=== PATIENT | male | born 1975 | race Caucasian/White ===

== ENCOUNTER 2020-07-25 08:33 | Emergency (ER) | payer OTHER, SELFPAY ==
[2020-07-25 08:52] VITALS: BP 118/78; PULSE 104; RESP 18; TEMP 37.1; O2SAT 95; BMI 21.3
--- NOTE | 2020-07-25 08:54 | ED.FEVER ---
HPI - Fever General Chief Complaint: Fever Stated Complaint: chemo yest/fever 100 Time Seen by Provider: 07/25/20 08:51 Source: patient and family (wofe ) Mode of arrival: Ambulatory Limitations: no limitations History of Present Illness HPI Narrative: This is a 45-year-old male who comes in with complaint of fever up to 101.5 at home starting last night. Patient did take Tylenol last night and this morning about 7:00 a.m.. He felt flushed, his face was little bit red. He has had some mild nasal congestion. He has not had any cough or chest congestion. He denies any chest pain or shortness of breath. He did have quite a bit of indigestion last night and states that he had some nausea but no vomiting. He alternates between diarrhea and constipation but has not had any black or bloody stool. He has not had any rashes or skin changes elsewhere. He had a headache last night but does not describe it as severe. No neck pain. Patient had a colon resection for stage IV colon cancer in June. He states his incisions have been healing well. He has some residual pain does stretches, he typically only has pain with bowel movements. He had his 2nd dose of chemo yesterday and his symptoms started in the evening afterwards. He has not had any radiation. He did take Zofran for nausea which he had not had until the chemo. He does not have any other major medical issues. He follows with Dr. Perez for his oncology and [facility] for his primary care. Related Data Previous Rx's Medication Instructions Recorded doxycycline hyclate 100 mg PO BID #14 cap 07/25/20 Allergies Allergy/AdvReac Type Severity Reaction Status Date / Time celecoxib [From Celebrex] Allergy Verified 07/25/20 09:37 Sulfa (Sulfonamide Allergy Verified 07/25/20 09:37 Antibiotics) Review of Systems Review of Systems ROS Unobtainable: All systems reviewed & are unremarkable except as noted in HPI and below Patient History Medical History (Updated 07/25/20 @ 09:34 by Jenny Selby DO) Colon cancer (Acute) Surgical History (Updated 07/25/20 @ 09:11 by Jenny Selby DO) S/P colon resection (Acute) Social History Smoking Status: Former smoker (quit in june) Smoking Status: Former smoker (quit in june) alcohol intake frequency: holidays/special occasions only Substance Use Type: marijuana Exam Narrative Exam Narrative: GEN: well nourished, well appearing male, alert and oriented x 3, patient appears to be in mild distress. HEENT: Atraumatic, pupils are equal round reactive to light, extraocular movements are intact, nares are clear, TMs are clear with no fluid, there is no conjunctival pallor. Throat is clear without any exudates, erythema, tonsillar enlargement or uvular deviation HEART: Regular rate and rhythm without murmur, clicks, rubs. LUNGS:Lungs clear to auscultation, no wheezes, rales, crackles, chest moves symmetrically, no tachycardia, tachypnea or accessory muscle use ABD:bowel sounds normal, soft, non-tender, no guarding, rebound, rigidity, no masses noted, no hepatosplenomegaly :No CVA tenderness MSCL: Non-tender, no muscle atrophy, muscles strength 5/5 upper and lower extremities, full range of motion, normal gait NEURO:CN 2-12 intact, sensation normal SKIN: No rash, erythema or other skin change Initial Vital Signs Initial Vital Signs: Vital Signs Temperature 98.7 F 07/25/20 08:52 Pulse Rate 104 H 07/25/20 08:52 Respiratory Rate 18 07/25/20 08:52 Blood Pressure 118/78 07/25/20 08:52 Pulse Oximetry 95 07/25/20 08:52 Course Orders Ordered: ED Orders 07/25/20 09:25 Complete Blood Count AUTO DIFF Stat Comprehensive Metabolic Panel Stat Lactate (Lactic Acid) Stat Procalcitonin Stat 07/25/20 09:37 COVID19 Stat 07/25/20 10:06 Blood Culture Stat Discontinued Medications Sodium Chloride (Normal Saline 0.9%) 1,000 mls @ 1,000 mls/hr IV BOLUS ONE Stop: 07/25/20 10:06 Last Infusion: 07/25/20 10:44 Dose: 0 mls/hr Documented by: Admin: 07/25/20 09:34 Dose: 1,000 mls/hr Documented by: KALE Piperacillin/Tazobactam/Dextrose (Zosyn) 3.375 gm in 50 mls @ 100 mls/hr IV NOW ONE Stop: 07/25/20 10:03 Last Infusion: 07/25/20 10:44 Dose: 0 mls/hr Documented by: Admin: 07/25/20 10:12 Dose: 100 mls/hr Documented by: KALE Reevaluation(s) Reevaluation #1: updated on CXR findings, starting initial dose of antibiotics while awaiting rest of results. Time: 09:36 Reevaluation #2: Patient's labs support a bacterial infection with elevated procalcitonin, leukocytosis, patient has normal lactate, no hypotension in the department. His initial pulse was 104 but during his stay has not been elevated on telemetry. Patient case was discussed with oncologist. Time: 11:09 Consultations Consultation #1: Spoke with Dr. Freeman patient's oncologist, plan for oral antibiotics able to touch base with the patient tomorrow. He does still have his chemo pump running at this time no direction to stop it. We discussed patient is not neutropenic today. Time: 11:14 Vital Signs Vital signs: Vital Signs - 8 hr 07/25/20 11:14 Pulse Rate 77 Respiratory Rate 17 Blood Pressure 104/64 Pulse Oximetry 98 MDM - Fever Lab Data Result diagrams: 07/25/20 09:25 07/25/20 09:25 Labs: Lab Results 07/25/20 07/25/20 07/25/20 Range/Units 09:25 09:25 09:25 WBC 16.4 H (4.5-11.0) X10^3/uL RBC 4.16 L (4.5-5.9) X10^6/uL Hgb 13.0 L (13.5-17.5) g/dL Hct 38.1 L (41-53) % MCV 91.4 (80-100) fL MCH 31.3 (26-34) PG MCHC 34.2 (30-36) % RDW 12.1 (11.6-14.8) % Plt Count 166 (150-400) X10^3/uL Neut % (Auto) 91.0 H (50-75) % Lymph % (Auto) 2.7 L (25-40) % Converse % (Auto) 4.2 (3-14) % Eos % (Auto) 1.9 L (2-4) % Baso % (Auto) 0.2 (0-2) % Neut # (Auto) 93933 H (4074-5007) /uL Lymph # (Auto) 400 L (3177-5790) /uL [place] # (Auto) 700 (0-900) /uL Eos # (Auto) 300 (0-450) /uL Baso # (Auto) 0 (0-100) /uL Sodium 133 L (137-145) mmol/L Potassium 4.4 (3.4-5.1) mmol/L Chloride 101 (98-107) mmol/L Carbon Dioxide 26 (22-32) mmol/L BUN 14 (9-20) mg/dL Creatinine 0.91 (0.66-1.25) mg/dL Estimated GFR > 60.0 (>60) mL/min BUN/Creatinine Ratio 15.4 (6-22) Glucose 120 H (70-100) mg/dL Lactate (0.7-2.1) mmol/L Calcium 9.1 (8.4-10.2) mg/dL Total Bilirubin 0.5 (0.2-1.3) mg/dL AST 32 (17-59) IU/L ALT 42 (<50) IU/L Alkaline Phosphatase 149 H (38-126) U/L Total Protein 7.6 (6.3-8.2) g/dL Albumin 4.2 (3.5-5.0) g/dL Globulin 3.4 (1.7-4.1) g/dL Albumin/Globulin Ratio 1.2 (1.0-2.8) Procalcitonin 0.82 H (<0.5) ng/mL COVID-19 PCR (Negative) 07/25/20 07/25/20 Range/Units 09:25 09:37 WBC (4.5-11.0) X10^3/uL RBC (4.5-5.9) X10^6/uL Hgb (13.5-17.5) g/dL Hct (41-53) % MCV (80-100) fL MCH (26-34) PG MCHC (30-36) % RDW (11.6-14.8) % Plt Count (150-400) X10^3/uL Neut % (Auto) (50-75) % Lymph % (Auto) (25-40) % Converse % (Auto) (3-14) % Eos % (Auto) (2-4) % Baso % (Auto) (0-2) % Neut # (Auto) (2183-8376) /uL Lymph # (Auto) (7663-1814) /uL Converse # (Auto) (0-900) /uL Eos # (Auto) (0-450) /uL Baso # (Auto) (0-100) /uL Sodium (137-145) mmol/L Potassium (3.4-5.1) mmol/L Chloride (98-107) mmol/L Carbon Dioxide (22-32) mmol/L BUN (9-20) mg/dL Creatinine (0.66-1.25) mg/dL Estimated GFR (>60) mL/min BUN/Creatinine Ratio (6-22) Glucose (70-100) mg/dL Lactate 1.8 (0.7-2.1) mmol/L Calcium (8.4-10.2) mg/dL Total Bilirubin (0.2-1.3) mg/dL AST (17-59) IU/L ALT (<50) IU/L Alkaline Phosphatase (38-126) U/L Total Protein (6.3-8.2) g/dL Albumin (3.5-5.0) g/dL Globulin (1.7-4.1) g/dL Albumin/Globulin Ratio (1.0-2.8) Procalcitonin (<0.5) ng/mL COVID-19 PCR Negative (Negative) Imaging Data Chest x-ray: Radiologist's Impression: [address] [address] XRay Report Signed Patient: Jon Mayberry RMR#: [id number] : 1975Acct:[id number] Age/Sex: 45 / MDate of Service: 07/25/20 Loc: ED Accession Number: [id number] Procedure: XR chest 1V Ordering Provider: Jenny Selby D.O. PROCEDURE: XR CHEST 1V INDICATIONS: fever, on chemo for colon ca TECHNIQUE: One view of the chest was acquired. COMPARISON: [facility], , XR CHEST 1 VIEW, 07/05/2020, 9:53. FINDINGS: Surgical changes and devices: Left chest wall port a catheter is present, tip of which is at the cavoatrial junction. Lungs and pleura: There is mild patchy airspace opacity within the left upper lung. No pleural effusions or pneumothorax. Mediastinum: Mediastinal contours appear normal. Heart size is normal. Bones and chest wall: No suspicious bony lesions. Overlying soft tissues appear unremarkable. IMPRESSION: Mild left upper lung pneumonia. Dictated by: Christopher Candelaria M.D. on 07/25/2020 at 9:17 Approved by: Christopher Candelaria M.D. on 07/25/2020 at 9:18 Discharge Plan Departure Patient Disposition: Home Clinical Impression: Pneumonia Discharge Date/Time: 07/25/20 11:26 Instructions: DI for Pneumonia -- Adult Activity Restrictions/Additional Instructions: Follow-up with your oncology team by early next week. Call for an appointment if you do not already have one. Take antibiotics as prescribed, take them until they are completely gone. You may take Tylenol up to a 1000 mg every 8 hours as needed for fevers greater than 100.4 F Continue home medications as prescribed. Make sure you are drinking plenty of fluids. Return to the ER for persistent fevers, lightheadedness, passing out, severe headaches, neck pain, shortness of breath, increasing chest pain or bloody productive sputum, swelling in her extremities, persistent vomiting or other new or concerning symptoms. Prescriptions: New doxycycline hyclate 100 mg capsule 100 mg PO BID Qty: 14 RF: 0 Referrals: Ben Freeman MD [Physician] -
--- NOTE | 2020-07-25 09:06 | DI.RAD.S_ITS ---
PROCEDURE: XR CHEST 1V INDICATIONS: fever, on chemo for colon ca TECHNIQUE: One view of the chest was acquired. COMPARISON: [facility], CR, XR CHEST 1 VIEW, 07/05/2020, 9:53. FINDINGS: Surgical changes and devices: Left chest wall port a catheter is present, tip of which is at the cavoatrial junction. Lungs and pleura: There is mild patchy airspace opacity within the left upper lung. No pleural effusions or pneumothorax. Mediastinum: Mediastinal contours appear normal. Heart size is normal. Bones and chest wall: No suspicious bony lesions. Overlying soft tissues appear unremarkable. IMPRESSION: Mild left upper lung pneumonia. Dictated by: Christopher Candelaria M.D. on 07/25/2020 at 9:17 Approved by: Christopher Candelaria M.D. on 07/25/2020 at 9:18
[2020-07-25] MEDS: SODIUM CHLORIDE 0.9% 1,000 ML 1000 ML IV (09:34)
[2020-07-25 09:35] LABS: Add Manual Diff / Slide Review NO; Basophils Absolute Auto 0 /uL (0-100); Basophils Percent Auto 0.2 % (0-2); Eosinophils Absolute Auto 300 /uL (0-450); Eosinophils Percent Auto 1.9 % (2-4); Hematocrit 38.1 % (41-53); Lymphocytes Absolute Auto 400 /uL (1100-4500); Lymphocytes Percent Auto 2.7 % (25-40); Mean Corpuscular HGB Conc 34.2 % (30-36); Mean Corpuscular Hemoglobin 31.3 PG (26-34); Mean Corpuscular Volume 91.4 fL (80-100); Monocytes Absolute Auto 700 /uL (0-900); Monocytes Percent Auto 4.2 % (3-14); Neutrophils Absolute Auto 14900 /uL (1500-7000); Platelet Count 166 X10^3/uL (150-400); Red Blood Cell Count 4.16 X10^6/uL (4.5-5.9); Red Cell Distribution Width 12.1 % (11.6-14.8); White Blood Cell Count 16.4 X10^3/uL (4.5-11.0)
--- NOTE | 2020-07-25 09:35 | PC.NURSE ---
patient undergoing chemo therapy for colon cancer with mets to the liver. Spiked a fever last night after chemo infusion. Has had decrease appetite and cold sensitivity secondary to chemotherapy
[2020-07-25 09:47] LABS: Lactate (Lactic Acid) 1.8 mmol/L (0.7-2.1)
[2020-07-25 09:49] LABS: Alanine Aminotransferase 42 IU/L (<50); Albumin 4.2 g/dL (3.5-5.0); Albumin Globulin Ratio 1.2 (1.0-2.8); Alkaline Phosphatase 149 U/L (38-126); Aspartate Aminotransferase 32 IU/L (17-59); BUN Creatinine Ratio 15.4 (6-22); Bilirubin Total 0.5 mg/dL (0.2-1.3); Blood Urea Nitrogen 14 mg/dL (9-20); Calcium 9.1 mg/dL (8.4-10.2); Carbon Dioxide 26 mmol/L (22-32); Chloride 101 mmol/L (98-107); Estimated Glomerular Filt Rate > 60.0 mL/min (>60); Globulin 3.4 g/dL (1.7-4.1); Glucose 120 mg/dL (70-100); HEMOLYSIS < 15 (0-50); Potassium 4.4 mmol/L (3.4-5.1); Sodium 133 mmol/L (137-145); Total Protein 7.6 g/dL (6.3-8.2)
[2020-07-25 09:57] LABS: COVID19 -Nasal RAPID Negative (Negative)
[2020-07-25] MEDS: PIPERACILLIN-TAZO 3.375 GM/50 ML FROZ.PIGGY IV (10:12)
[2020-07-25 10:15] LABS: Procalcitonin 0.82 ng/mL (<0.5)
[2020-07-25 11:14] VITALS: BP 104/64; PULSE 77; RESP 17; O2SAT 98
== END 2020-07-25 11:26 | disposition home or self-care (01) ==
PROVIDERS: Emergency Provider Emergency Medicine
DX: J18.9 Pneumonia, unspecified organism (principal); R50.9 Fever, unspecified
CPT/HCPCS: 36415; 71045; 80053; 83605; 84145; 85025; 87040; 87635; 96365; 99284; J2543

== ENCOUNTER 2023-12-28 07:21 | Emergency (ER) | payer BC, MEDICARE, SELFPAY ==
[2023-12-28] VITALS (7 sets, daily range): BP systolic 137–160; BP diastolic 68–95; PULSE 78–95; RESP 18; TEMP 36.8; O2SAT 92–100; BMI 19.2
--- NOTE | 2023-12-28 07:45 | ED_ITS ---
HPI - Back Pain/Injury General Chief Complaint: Back Pain/Injury Stated Complaint: sciatica both legs Time Seen by Provider: 12/28/23 07:45 Source: patient Mode of arrival: Ambulatory Limitations: no limitations History of Present Illness HPI Narrative: 48-year-old male with history of back surgery x2, metastatic colon cancer who is currently stopped chemotherapy because it was ineffective. Patient presents with the acute on chronic low back pain. Patient states similar to prior episodes in the lower lumbar radiates down to the left buttock and has some paresthesias down the left leg. Patient has had paresthesias and pain on the side before but has been a little bit more persistent in the last few days. He states often his symptoms worsened by a cough or a sneeze. He can often use home medications including his oral morphine and oxycodone which he takes for his colon cancer and metastases and [id number] medications to improve his symptoms but has not been improving adequately over the past day or 2. He denies any loss of bowel or bladder control, no saddle anesthesia. States majority symptoms around the left. Was quite painful to try to get out of bed this morning. Did put his back brace on last night that he had leftover. Denies fevers or chills no chest pain or shortness of breath, no real GI or urinary symptoms currently. He has had 2 back surgery in the past in the lower lumbar spine for disc. Patient states last surgery was over 10 years ago. Patient has had multiple abdominal surgeries for his colon cancer including resections, debulking and colectomy. Patient states he went through 45 rounds of chemotherapy and has since stopped them. He does not have any known Mets to his lumbar spine but states he has not had imaging in a couple weeks to month. States has a allergy to meloxicam but can take ibuprofen without issue, does not tolerate sulfa. Follows with Dr. Perez for oncology and surgeries at [facility]. Related Data Previous Rx's Medication Instructions Recorded doxycycline hyclate 100 mg capsule 100 mg PO BID #14 caps 07/25/20 ketorolac 10 mg tablet 10 mg PO Q6H PRN pain 5 days #14 12/28/23 tabs oxycodone 5 mg tablet 5 mg PO Q4H PRN pain #20 tabs 12/28/23 prednisone 10 mg tablets in a dose See Rx Instructions PO .COMPLEX 12/28/23 pack #21 ea Allergies Allergy/AdvReac Type Severity Reaction Status Date / Time celecoxib [From Celebrex] Allergy Verified 07/25/20 09:37 Sulfa (Sulfonamide Allergy Verified 07/25/20 09:37 Antibiotics) Review of Systems Review of Systems ROS Unobtainable: All systems reviewed & are unremarkable except as noted in HPI and below Patient History Medical History Colon cancer Surgical History S/P colon resection Social History Smoking Status: Current some day smoker Smoking Status: Current some day smoker alcohol intake frequency: 3 or more drinks per day Alcohol type: beer Substance Use Type: marijuana Exam Narrative Exam Narrative: GENERAL: Alert and oriented x three, thin male in moderate distress. HEENT: Head normocephalic, atraumatic, EOMI, pupils reactive, face symmetric, moist mucous membranes NECK: Supple, full range of motion CARDIOVASCULAR: Regular rate and rhythm without murmurs, rubs or gallops. RESPIRATORY: Breath sounds equal bilaterally, no wheezes rales or rhonchi. ABDOMEN: Soft, nontender. Normoactive bowel sounds all 4 quadrants. No guarding or rebound, rigidity, no mass : No CVA tenderness BACK: No cervical, thoracic or lumbar vertebral point tenderness. Patient has decreased range of motion. Patient has pain particularly with left leg movement. Rectal exam is deferred. Muscle strength is 5/5 in lower extremities, DTRs are 2/4 and lower extremities. Dorsalis pedis and tibialis pulses are 2+ and lower extremities. Sensation is intact in the lower extremities. EXTREMITIES: Normal range of motion, no clubbing or edema. Neurovascularly intact NEUROLOGICAL: Cranial nerves II through XII grossly intact. Moving all extremities SKIN: Warm, dry, no petechiae, no rashes or lesions. Initial Vital Signs Initial Vital Signs: Vital Signs Pulse Rate 95 H 12/28/23 07:26 Blood Pressure 160/82 H 12/28/23 07:26 Pulse Oximetry 97 12/28/23 07:26 Course Orders Ordered: ED Orders 12/28/23 07:57 CT lumbar spine wo con Stat 12/28/23 08:10 CBC Auto Diff [Complete Blood Count AUTO DIFF] Stat CMP [Comprehensive Metabolic Panel] Stat Lipase Stat Discontinued Medications Hydromorphone HCl (Hydromorphone 1 Mg Inj) 1 mg IV NOW ONE Stop: 12/28/23 07:58 Last Admin: 12/28/23 08:17 Dose: 1 mg Documented By: ROSEMARIE Ketorolac Tromethamine (Ketorolac 30 Mg/Ml Vial) 15 mg IV NOW ONE Stop: 12/28/23 07:58 Last Admin: 12/28/23 08:17 Dose: 15 mg Documented By: ROSEMARIE Methylprednisolone (Methylprednisolone 125 Mg/2 Ml Vial) 125 mg IV NOW ONE Stop: 12/28/23 09:50 Last Admin: 12/28/23 09:56 Dose: 125 mg Documented By: ROSEMARIE Vital Signs Vital signs: Vital Signs - 8 hr 12/28/23 07:26 12/28/23 07:26 12/28/23 07:30 Temperature 98.2 F Pulse Rate 95 H 93 H Respiratory Rate 18 Blood Pressure 160/82 H 160/82 H Pulse Oximetry 97 97 Oxygen Delivery Method Room Air 12/28/23 07:30 12/28/23 07:30 12/28/23 08:00 Temperature Pulse Rate 90 Respiratory Rate Blood Pressure 143/68 H 137/83 Pulse Oximetry 100 Oxygen Delivery Method 12/28/23 08:00 12/28/23 08:36 12/28/23 08:37 Temperature Pulse Rate 84 85 85 Respiratory Rate Blood Pressure Pulse Oximetry 97 92 99 Oxygen Delivery Method 12/28/23 08:37 12/28/23 09:00 12/28/23 09:00 Temperature Pulse Rate 78 Respiratory Rate Blood Pressure 147/84 H 143/84 H Pulse Oximetry 97 Oxygen Delivery Method 12/28/23 09:30 12/28/23 09:30 Temperature Pulse Rate 85 Respiratory Rate Blood Pressure 154/95 H Pulse Oximetry 98 Oxygen Delivery Method MDM - Back Pain/Injury Lab Data 12/28/23 08:10 12/28/23 08:10 Labs: Lab Results 12/28/23 Range/Units 08:10 WBC 7.1 (4.5-11.0) X10^3/uL RBC 4.17 L (4.5-5.9) X10^6/uL Hgb 13.8 (13.5-17.5) g/dL Hct 40.6 L (41-53) % MCV 97.2 (80-100) fL MCH 33.1 (26-34) PG MCHC 34.1 (30-36) % RDW 13.1 (11.6-14.8) % Plt Count 175 (150-400) X10^3/uL Neut % (Auto) 76.3 H (50-75) % Lymph % (Auto) 12.8 L (25-40) % Swift % (Auto) 8.3 (3-14) % Eos % (Auto) 2.2 (2-4) % Baso % (Auto) 0.4 (0-2) % Neut # (Auto) 5400 (1574-9783) /uL Lymph # (Auto) 900 L (0469-2497) /uL Swift # (Auto) 600 (0-900) /uL Eos # (Auto) 200 (0-450) /uL Baso # (Auto) 0 (0-100) /uL Sodium 132 L (137-145) mmol/L Potassium 4.2 (3.4-5.1) mmol/L Chloride 99 (98-107) mmol/L Carbon Dioxide 26 (22-32) mmol/L BUN 9 (9-20) mg/dL Creatinine 0.74 (0.66-1.25) mg/dL Estimated GFR > 60 (>60) mL/min BUN/Creatinine Ratio 12.2 (6-22) Glucose 97 (70-100) mg/dL Calcium 9.3 (8.4-10.2) mg/dL Total Bilirubin 0.5 (0.2-1.3) mg/dL AST 79 H (17-59) IU/L ALT 45 (<50) IU/L Alkaline Phosphatase 180 H (38-126) U/L Total Protein 7.8 (6.3-8.2) g/dL Albumin 4.5 (3.5-5.0) g/dL Globulin 3.3 (1.7-4.1) g/dL Albumin/Globulin Ratio 1.4 (1.0-2.8) Lipase 31 (23-300) U/L Imaging Data Lspine CT: Radiologist's Impression: [address] [address] [address] Scan Report Signed Patient: Jon Mayberry MR#: [id number] : 1975 Acct:[id number] Age/Sex: 48 / M Date of Service: 12/28/23 Loc: ED Accession Number: [id number] Procedure: CT lumbar spine wo con Ordering Provider: Jenny Selby D.O. PROCEDURE: CT LUMBAR SPINE WO CON INDICATIONS: acute on chronic LBP, LLE radic, hx back sx, active colon ca TECHNIQUE: Noncontrast 3 mm thick sections acquired from the T12 level to the sacrum. Sagittal and coronal reformats were constructed. For radiation dose reduction, the following was used: automated exposure control. COMPARISON: [facility], CT, CT CHEST ABDOMEN PELVIS WITH CONTRAST, 10/28/2023, 16:44. FINDINGS: Image quality: Excellent. Bones: There is normal bony alignment. Mild superior endplate depression at the central portion of the L5 vertebral body, possibly a new Schmorl's node versus mild compression fracture. Mild generalized osteopenia. The remaining lumbar vertebrae appear to be intact. No suspicious lytic or blastic bony lesions. No pars defects. T12-L1: No significant spinal canal stenosis or neural foraminal narrowing. L1-L2: No significant spinal canal stenosis or neural foraminal narrowing. L2-L3: No significant spinal canal stenosis or neural foraminal narrowing. L3-L4: Mild circumferential disc bulging and mild bilateral facet hypertrophy. Findings result in mild narrowing of the bilateral neural foramina without significant spinal canal stenosis. L4-L5: Mild circumferential disc bulging and mild bilateral facet hypertrophy. Findings result in mild narrowing of the bilateral neural foramina without significant spinal canal stenosis. L5-S1: Moderate joint space narrowing with circumferential disc bulging and mild bilateral facet hypertrophy, which result and moderate bilateral neural foraminal narrowing without significant spinal canal stenosis. Soft tissues: No retroperitoneal masses or hematomas. Visualized aorta is normal in caliber. Postsurgical changes are partially included in the right lower quadrant. Mild positioning of the left kidney again noted. IMPRESSION: 1. Minimally displaced superior end-plate compression fracture versus new Schmorl's node at L5, new when compared to the CT from 10/28/2023. Recommend correlation for point tenderness. No retropulsion of osseous fragments. 2. Mild to moderate multilevel degenerative disc disease and facet hypertrophy as described in the body of the report. No high-grade spinal canal stenosis or high-grade neural foraminal narrowing. Approved by: Casper Carver M.D. on 12/28/2023 at 9:19 MDM Narrative Medical decision making narrative: 48-year-old male with known chronic back pain but also high-risk for metastases with active colon cancer who has stopped chemotherapy. Plan for labs and CT L-spine to evaluate for any metastatic lesions. White count of 7.1 hemoglobin of 13.8 platelets of 175, sodium 132 potassium 4 2 normal renal function, AST 79 alk-phos is 180. CT imaging shows minimally displaced superior endplate compression fracture versus new Schmorl's node at L5, new compared to 10/28/2023 patient has increased pain I suspect new compression fracture. [id number] moderate multilevel degenerative disc and facet hypertrophy no high-grade spinal canal stenosis or high-grade neural foraminal narrowing. Patient was given Toradol, and dose of Dilaudid. He states pain is much improved. He has not had any reaction to the ketorolac. Reviewed his imaging plan and need for follow-up. Patient might be possible candidate for kyphoplasty for pain management if persistent with patient's history would refer back to spinal surgeon. He was [place] for his prior surgeries we will give local referral if he prefers. Discussed with patient he is aware of red flag symptoms and strict return precautions. Also discussed pain management regimen continue his morphine as prescribed, can increase his oxycodone every 4-6 hours 1-2 tablets. He takes about 5 or 6 tablets total daily. Patient also given a script for ketorolac, he requests a script for prednisone as he has had good improvement with this in the past as well. Discharge Plan Departure Patient Disposition: Home Clinical Impression: Closed compression fracture of L5 vertebra Instructions: Vertebral Compression Fracture Activity Restrictions/Additional Instructions: Your imaging today shows what appears to be a compression fracture at L5. There do not appear to be any new metastatic lesions to the spine. I would recommend new follow up with a spinal surgeon, contacts included below. Continue your home medications including your morphine as prescribed. Take Tylenol a 1000 mg every 6 hours as needed. You can take oxycodone 1- tablets every 4-6 hours as needed. This medication can make you sleepy do not drive, perform hazardous activities or make any major decisions while taking it. This medication will make you constipated please take a stool softener once to twice daily until stools are soft and regular. You can take ketorolac 1 tablet every 6 hours as needed with these medications. This medication can not be taken for more than 5 days. Take steroids until completed. Prescription sent to [facility] in [place]. Please return for rapidly worsening symptoms, new loss of bowel or bladder control, new weakness or loss of sensation, fevers or other new or concerning changes. Prescriptions: New prednisone 10 mg tablets,dose pack See Rx Instructions .ROUTE .COMPLEX Qty: 21 0RF Rx Instructions: 6 tabs p.o. x1 day, then 5 tabs p.o. x1 day, then 4 tablets p.o. x1 day, then 3 tabs p.o. x1 day, then 2 tabs p.o. x1 day, then 1 tab p.o. x1 day oxycodone 5 mg tablet 5 mg PO Q4H PRN (Reason: pain) Qty: 20 0RF Rx Instructions: 1-2 tablets every 4-6 hours as needed for pain. ketorolac 10 mg tablet 10 mg PO Q6H PRN (Reason: pain) 5 Days Qty: 14 0RF No Action doxycycline hyclate 100 mg capsule 100 mg PO BID Qty: 14 0RF Referrals: Jeannine Salas MD [Physician] - Stand Alone Forms: Patient Portal/API
--- NOTE | 2023-12-28 07:57 | DI.CT.S_ITS ---
PROCEDURE: CT LUMBAR SPINE WO CON INDICATIONS: acute on chronic LBP, LLE radic, hx back sx, active colon ca TECHNIQUE: Noncontrast 3 mm thick sections acquired from the T12 level to the sacrum. Sagittal and coronal reformats were constructed. For radiation dose reduction, the following was used: automated exposure control. COMPARISON: [facility], CT, CT CHEST ABDOMEN PELVIS WITH CONTRAST, 10/28/2023, 16:44. FINDINGS: Image quality: Excellent. Bones: There is normal bony alignment. Mild superior endplate depression at the central portion of the L5 vertebral body, possibly a new Schmorl's node versus mild compression fracture. Mild generalized osteopenia. The remaining lumbar vertebrae appear to be intact. No suspicious lytic or blastic bony lesions. No pars defects. T12-L1: No significant spinal canal stenosis or neural foraminal narrowing. L1-L2: No significant spinal canal stenosis or neural foraminal narrowing. L2-L3: No significant spinal canal stenosis or neural foraminal narrowing. L3-L4: Mild circumferential disc bulging and mild bilateral facet hypertrophy. Findings result in mild narrowing of the bilateral neural foramina without significant spinal canal stenosis. L4-L5: Mild circumferential disc bulging and mild bilateral facet hypertrophy. Findings result in mild narrowing of the bilateral neural foramina without significant spinal canal stenosis. L5-S1: Moderate joint space narrowing with circumferential disc bulging and mild bilateral facet hypertrophy, which result and moderate bilateral neural foraminal narrowing without significant spinal canal stenosis. Soft tissues: No retroperitoneal masses or hematomas. Visualized aorta is normal in caliber. Postsurgical changes are partially included in the right lower quadrant. Mild positioning of the left kidney again noted. IMPRESSION: 1. Minimally displaced superior end-plate compression fracture versus new Schmorl's node at L5, new when compared to the CT from 10/28/2023. Recommend correlation for point tenderness. No retropulsion of osseous fragments. 2. Mild to moderate multilevel degenerative disc disease and facet hypertrophy as described in the body of the report. No high-grade spinal canal stenosis or high-grade neural foraminal narrowing. Approved by: Casper Carver M.D. on 12/28/2023 at 9:19
[2023-12-28] MEDS: HYDROMORPHONE 1 MG INJ IV (08:17)
[2023-12-28] MEDS: KETOROLAC 30 MG/ML VIAL 15 MG IV (08:17)
[2023-12-28 08:19] LABS: Add Manual Diff / Slide Review NO; Basophils Absolute Auto 0 /uL (0-100); Basophils Percent Auto 0.4 % (0-2); Eosinophils Absolute Auto 200 /uL (0-450); Eosinophils Percent Auto 2.2 % (2-4); Hematocrit 40.6 % (41-53); Hemoglobin 13.8 g/dL (13.5-17.5); Lymphocytes Absolute Auto 900 /uL (1100-4500); Lymphocytes Percent Auto 12.8 % (25-40); Mean Corpuscular HGB Conc 34.1 % (30-36); Mean Corpuscular Hemoglobin 33.1 PG (26-34); Mean Corpuscular Volume 97.2 fL (80-100); Monocytes Absolute Auto 600 /uL (0-900); Monocytes Percent Auto 8.3 % (3-14); Neutrophils Absolute Auto 5400 /uL (1500-7000); Neutrophils Percent Auto 76.3 % (50-75); Platelet Count 175 X10^3/uL (150-400); Red Blood Cell Count 4.17 X10^6/uL (4.5-5.9); Red Cell Distribution Width 13.1 % (11.6-14.8); White Blood Cell Count 7.1 X10^3/uL (4.5-11.0)
[2023-12-28 08:30] LABS: Alanine Aminotransferase 45 IU/L (<50); Albumin 4.5 g/dL (3.5-5.0); Albumin Globulin Ratio 1.4 (1.0-2.8); Alkaline Phosphatase 180 U/L (38-126); Aspartate Aminotransferase 79 IU/L (17-59); BUN Creatinine Ratio 12.2 (6-22); Bilirubin Total 0.5 mg/dL (0.2-1.3); Blood Urea Nitrogen 9 mg/dL (9-20); Calcium 9.3 mg/dL (8.4-10.2); Carbon Dioxide 26 mmol/L (22-32); Chloride 99 mmol/L (98-107); Estimated Glomerular Filt Rate > 60 mL/min (>60); Globulin 3.3 g/dL (1.7-4.1); Glucose 97 mg/dL (70-100); HEMOLYSIS < 15 (0-50); Lipase 31 U/L (23-300); Potassium 4.2 mmol/L (3.4-5.1); Sodium 132 mmol/L (137-145); Total Protein 7.8 g/dL (6.3-8.2)
[2023-12-28] MEDS: methylPREDNISolone 125 MG/2 ML VIAL IV (09:56)
== END 2023-12-28 10:09 | disposition home or self-care (01) ==
PROVIDERS: Emergency Provider Emergency Medicine
DX: S32.050A Wedge compression fracture of fifth lumbar vertebra, initial encounter for closed fracture (principal)
CPT/HCPCS: 36415; 72131; 80053; 83690; 85025; 96374; 96375; 99284; J1170; J1885; J2919

== ENCOUNTER 2024-02-29 12:54 | Observation (INO) | payer BC, MEDICARE, SELFPAY ==
[2024-02-29 13:07] VITALS: BP 135/81; PULSE 101; RESP 17; TEMP 36.6; O2SAT 99; BMI 17.9
--- NOTE | 2024-02-29 15:41 | DI.CT.S_ITS ---
PROCEDURE: CT CHEST ABD PEL WO CON INDICATIONS: Chest pain abdominal pain TECHNIQUE: After the administration of oral contrast, 5 mm thick sections acquired from the lung apices to the symphysis pubis. 5 mm thick coronal and sagittal reformats acquired, with additional 7 mm coronal MIP reformats through the lungs. For radiation dose reduction, the following was used: automated exposure control, adjustment of mA and/or kV according to patient size. COMPARISON: [facility], CT, CT LUMBAR SPINE WO CON, 12/28/2023, 8:32. [facility], CT, CT CHEST ABDOMEN PELVIS WITH CONTRAST, 01/27/2024, 9:20. FINDINGS: Image quality: Diagnostic. CHEST: Lower Neck: No enlarged lymph nodes. Thyroid: No thyroid nodules which require sonographic follow up, per consensus guidelines. Axillae: No enlarged lymph nodes. Chest Wall: Unremarkable. Bones: Again noted is percutaneous cement fixation of L5 which has a possible vague sclerotic lesion. Interval development of a acute Schmorl's node/superior endplate compression of L3.. Lungs and Pleura: No pneumothorax or pleural effusions. Multiple pulmonary nodules are consistent with known pulmonary metastatic disease. Minimal short interval growth of pulmonary nodules. For instance, a right upper lobe pulmonary nodule on previous image 116/6 and current image 52/3 has increased from 1.4 cm to 1.7 cm. A left lower lobe pulmonary nodule on previous image 137/6 and current image 77/3 has increased from 1.3 cm to 1.5 cm. Heart: Heart size is normal. No pericardial effusion. Thoracic Vessels: The aorta and pulmonary arteries demonstrate normal size. Mediastinum and Shannon: No enlarged lymph nodes. Esophagus: No wall thickening. No hiatal hernia. ABDOMEN: Liver: Diffuse hepatomegaly. Extensive infiltrative malignancy is much less well seen in the absence of intravenous contrast. Gallbladder: No radiopaque gallstones or wall thickening. Biliary ducts: No biliary dilation. Pancreas: No ductal dilation. Spleen: Mild splenomegaly. Adrenal Glands: No adrenal nodules. Kidneys and Ureters: No hydronephrosis. No solid mass. No complex renal cystic lesion which requires follow up. Stomach and Bowel: Remote partial colectomy. No abnormally dilated bowel loops. Mild diffuse fecal load. Peritoneum: No abnormal intraperitoneal fluid. No free air. Ventral Wall: No hernia. Abdominal Nodes: No retroperitoneal or mesenteric adenopathy by size criteria. Vessels: Aorta and inferior vena cava are normal in size. PELVIS: Pelvic Organs: Unremarkable. Bladder: Unremarkable. Pelvic Nodes: No enlarged lymph nodes. Miscellaneous: No inguinal hernias are seen. Bones: Again noted is percutaneous cement fixation of L5 which has a possible vague sclerotic lesion. Interval development of a acute Schmorl's node/superior endplate compression of L3 to the right of midline. IMPRESSION: 1. Slight interval increase in the size of pulmonary metastatic lesions in the short interval. 2. No acute pulmonary process. 3. Hepatomegaly with extensive infiltrative metastatic disease is not as well seen without contrast. 4. Mild splenomegaly, as before. 5. Treated L5 compression. 6. Interval development of a superior endplate Schmorl's node/acute compression of L3 superior endplate to the right of midline. Recommend correlation for presence or absence of point tenderness related to this process. Dictated by: Ministerio Russo M.D. on 02/29/2024 at 16:31 Approved by: Ministerio Russo M.D. on 02/29/2024 at 16:45
--- NOTE | 2024-02-29 15:41 | DI.US.S_ITS ---
PROCEDURE: US PERIPH VENOUS LOW EXTREM BI INDICATIONS: Leg swelling TECHNIQUE: Real-time imaging, as well as color and pulse Doppler interrogation, were performed of the deep veins of both legs from the inguinal ligament to the popliteal fossa, with documentation of the visualized calf veins. COMPARISON: None. FINDINGS: Right: The common femoral, femoral, popliteal, and the visualized calf veins are normally compressible, and free of intraluminal thrombus. Color and pulse Doppler demonstrate normal phasic intravascular flow. There is normal augmentation response to distal compression maneuver. Left: The common femoral, femoral, popliteal, and the visualized calf veins are normally compressible, and free of intraluminal thrombus. Color and pulse Doppler demonstrate normal phasic intravascular flow. There is normal augmentation response to distal compression maneuver. IMPRESSION: No findings of deep venous thrombosis in either lower extremity. Dictated by: Thea Patrick M.D. on 02/29/2024 at 17:04 Approved by: Thea Patrick M.D. on 02/29/2024 at 17:04
--- NOTE | 2024-02-29 15:45 | ED_ITS ---
HPI - Extremity Problem General Chief complaint: Extremity Problem,Nontraumatic Stated complaint: edema bilaterally and sciatica pain Time Seen by Provider: 02/29/24 15:26 Source: patient Mode of arrival: Ambulatory History of Present Illness HPI Narrative: Patient here with . Has had increase lower back pain, decreased appetite. Has had nausea and vomiting with the attempts to eat. Patient has history of metastatic colon cancer, seen by Dr. Freeman. Is currently deciding whether to go with palliative care or hospice care. Patient had surgery for his lower back due to metastatic process in December. Patient seen by Dr. Rich, [facility] ortho spine. Patient in the past week states has had bilateral leg swelling. He did recently travel to [place] a couple of weeks ago. Related Data Home Medications Medication Instructions Recorded Confirmed calcium carbonate (Tums) 500 mg PO TID PRN reflux 02/29/24 02/29/24 docusate sodium 100 mg capsule 100 mg PO BID PRN Constipation 02/29/24 02/29/24 ipratropium bromide 21 mcg (0.03 2 spray intranasal BID-TID PRN 02/29/24 02/29/24 %) nasal spray Congestion lorazepam 0.5 mg tablet 0.5 mg PO BID 02/29/24 02/29/24 losartan 50 mg tablet 50 mg PO DAILY PRN Hypertension 02/29/24 02/29/24 morphine 30 mg tablet,extended 30 mg PO BID 02/29/24 02/29/24 release oxycodone 10 mg tablet 10 mg PO Q4H PRN pain 02/29/24 02/29/24 Previous Rx's Medication Instructions Recorded esomeprazole magnesium 40 mg 40 mg PO DAILY #30 caps 03/01/24 capsule,delayed release (Nexium) pregabalin 50 mg capsule (Lyrica) 50 mg PO BID #60 caps 03/01/24 Allergies Allergy/AdvReac Type Severity Reaction Status Date / Time celecoxib [From Celebrex] Allergy Verified 07/25/20 09:37 Sulfa (Sulfonamide Allergy Verified 07/25/20 09:37 Antibiotics) Review of Systems Review of Systems Narrative: GENERAL: negative chills, fatigue, malaise, fever, sweats. HEENT: negative sinus pain, ear pain, sore throat RESPIRATORY: negative dyspnea, cough CARDIOVASCULAR: negative chest pain, palpitations GASTROINTESTINAL: Positive nausea, vomiting, abdominal pain : negative dysuria, frequency, hematuria, positive dark urine MUSCULOSKELETAL: Positive muscle or bony pain SKIN: negative rash, skin lesions NEUROLOGIC: negative weakness, numbness Patient History Medical History Colon cancer Surgical History S/P colon resection Social History household members: significant other Smoking Status: Current every day smoker alcohol intake: current Smoking Status: Current every day smoker alcohol intake frequency: 3 or more drinks per day Alcohol type: beer Substance Use Type: marijuana Exam Narrative Exam Narrative: GENERAL: in no distress, not toxic not dyspneic HEAD: Normocephalic. EYES: Pupils equal round ENT: Mucous membranes moist. NECK: Trachea midline. CARDIOVASCULAR: Regular rate and rhythm RESPIRATORY: Clear to auscultation. Breath sounds equal bilaterally. No wheezes, rales, or rhonchi. GASTROINTESTINAL: Abdomen soft, non-tender EXTREMITIES: No gross deformities. There is 2+ bilateral pedal and ankle edema. BACK: Limited range of motion of the back due to pain. NEURO: AOx4. SKIN: Warm and dry PSYCH: Not anxious, is cooperative Initial Vital Signs Initial Vital Signs: Vital Signs Temperature 98 F 02/29/24 13:07 Pulse Rate 101 H 02/29/24 13:07 Respiratory Rate 17 02/29/24 13:07 Blood Pressure 135/81 02/29/24 13:07 Pulse Oximetry 99 02/29/24 13:07 Oxygen Delivery Method Room Air 02/29/24 13:07 Course Orders Ordered: Discontinued Medications Acetaminophen (Acetaminophen 325 Mg Tablet) 650 mg PO Q6H PRN PRN Reason: Fever/Mild Pain (1-3) Calcium Carbonate (Calcium Carbonate 500 Mg Tab) 500 mg PO TID PRN PRN Reason: reflux Last Admin: 03/01/24 09:29 Dose: 500 mg Documented By: WILFREDO Docusate Sodium (Docusate 100 Mg Capsule) 100 mg PO BID PRN PRN Reason: Constipation Enoxaparin Sodium (Enoxaparin 30 Mg/0.3 Ml Syringe) 30 mg SUBCUT DAILY [facility] Last Admin: 03/01/24 08:30 Dose: 30 mg Documented By: LDV Hydromorphone HCl (Hydromorphone 1 Mg Inj) 1 mg IM NOW ONE Stop: 02/29/24 18:18 Last Admin: 02/29/24 18:25 Dose: 1 mg Documented By: MPO Hydromorphone HCl (Hydromorphone 0.5 Mg Inj) 0.5 mg IV Q2H PRN PRN Reason: Pain, Severe (7-10) Last Admin: 03/01/24 12:52 Dose: 0.5 mg Documented By: Admin: 03/01/24 10:17 Dose: 0.5 mg Documented By: LDV Sodium Chloride (Normal Saline 0.9%) 1,000 mls @ 1,000 mls/hr IV BOLUS ONE Stop: 02/29/24 16:40 Last Infusion: 02/29/24 17:22 Dose: Infused Documented By: Admin: 02/29/24 16:16 Dose: 1,000 mls/hr Documented By: MPO Sodium Chloride (Normal Saline 0.9%) 1,000 mls @ 100 mls/hr IV CONT [facility] Last Admin: 03/01/24 05:17 Dose: 100 mls/hr Documented By: Infusion: 03/01/24 05:17 Dose: Infused Documented By: Admin: 02/29/24 21:08 Dose: 100 mls/hr Documented By: AT Lorazepam (Lorazepam 0.5 Mg Tablet) 0.5 mg PO BID [facility] Last Admin: 03/01/24 09:29 Dose: 0.5 mg Documented By: LDV Morphine Sulfate (Morphine Er 15 Mg Tablet) 30 mg PO BID [facility] Last Admin: 03/01/24 08:25 Dose: 30 mg Documented By: Admin: 02/29/24 21:07 Dose: 30 mg Documented By: AT Naloxone HCl (Naloxone 0.4 Mg/Ml Vial) 0.2 mg IV Q2MIN PRN PRN Reason: Opiate Reversal Nicotine (Nicotine 21 Mg Patch) 21 mg TOP DAILY [facility] Last Admin: 03/01/24 08:25 Dose: 21 mg Documented By: LDV Nicotine (Nicotine 21 Mg Patch) 21 mg TOP NOW ONE Stop: 03/01/24 02:19 Last Admin: 03/01/24 02:25 Dose: 21 mg Documented By: AT Ondansetron HCl (Ondansetron 4 Mg/2 Ml Inj) 4 mg IV NOW ONE Stop: 02/29/24 15:42 Last Admin: 02/29/24 16:16 Dose: Not Given Documented By: MPO Ondansetron HCl (Ondansetron 4 Mg/2 Ml Inj) 4 mg IV Q8HR PRN PRN Reason: Nausea And Vomiting Oxycodone HCl (Oxycodone Ir 10 Mg Tablet) 20 mg PO NOW ONE Stop: 02/29/24 19:13 Last Admin: 02/29/24 20:13 Dose: Not Given Documented By: SB Oxycodone HCl (Oxycodone Ir 5 Mg Tablet) 20 mg PO BID [facility] Last Admin: 03/01/24 08:25 Dose: 20 mg Documented By: Admin: 02/29/24 20:12 Dose: 20 mg Documented By: SB Oxycodone HCl (Oxycodone Ir 5 Mg Tablet) 10 mg PO Q3HR PRN PRN Reason: Pain, Severe (7-10) Last Admin: 03/01/24 05:07 Dose: 10 mg Documented By: Admin: 03/01/24 02:05 Dose: 10 mg Documented By: AT Pantoprazole Sodium (Pantoprazole Dr 40 Mg Tablet) 40 mg PO DAILY [facility] Last Admin: 03/01/24 09:29 Dose: 40 mg Documented By: LDV Pregabalin (Pregabalin 50 Mg Capsule) 50 mg PO BID [facility] Last Admin: 03/01/24 12:46 Dose: Not Given Documented By: LDV Vital Signs Vital signs: Vital Signs - 8 hr 02/29/24 13:07 Temperature 98 F Pulse Rate 101 H Respiratory Rate 17 Blood Pressure 135/81 Pulse Oximetry 99 Oxygen Delivery Method Room Air MDM - Extremity (Nontraumatic) Lab Data 03/01/24 05:08 03/01/24 12:10 Labs: Lab Results 02/29/24 Range/Units 16:10 WBC 9.8 (4.5-11.0) X10^3/uL RBC 4.21 L (4.5-5.9) X10^6/uL Hgb 13.0 L (13.5-17.5) g/dL Hct 38.3 L (41-53) % MCV 91.0 (80-100) fL MCH 31.0 (26-34) PG MCHC 34.0 (30-36) % RDW 13.9 (11.6-14.8) % Plt Count 192 (150-400) X10^3/uL Neut % (Auto) 83.1 H (50-75) % Lymph % (Auto) 8.0 L (25-40) % [place] % (Auto) 7.3 (3-14) % Eos % (Auto) 0.8 L (2-4) % Baso % (Auto) 0.8 (0-2) % Neut # (Auto) 8100 H (4137-3871) /uL Lymph # (Auto) 800 L (3519-5388) /uL [place] # (Auto) 700 (0-900) /uL Eos # (Auto) 100 (0-450) /uL Baso # (Auto) 100 (0-100) /uL Sodium 123 L (137-145) mmol/L Potassium 5.2 H (3.4-5.1) mmol/L Chloride 85 L (98-107) mmol/L Carbon Dioxide 31 (22-32) mmol/L BUN 22 H (9-20) mg/dL Creatinine 1.43 H (0.66-1.25) mg/dL Estimated GFR 60 (>60) mL/min BUN/Creatinine Ratio 15.4 (6-22) Glucose 81 (70-100) mg/dL Calcium 9.3 (8.4-10.2) mg/dL Magnesium 2.0 (1.6-2.3) mg/dL Total Bilirubin 1.7 H (0.2-1.3) mg/dL AST 430 H (17-59) IU/L ALT 63 H (<50) IU/L Alkaline Phosphatase 987 H (38-126) U/L Total Creatine Kinase 90 (55-170) U/L Total Protein 7.5 (6.3-8.2) g/dL Albumin 4.0 (3.5-5.0) g/dL Globulin 3.5 (1.7-4.1) g/dL Albumin/Globulin Ratio 1.1 (1.0-2.8) Imaging Data US - DVT: Radiologist's Impression: [address] [address] Ultrasound Report Signed Patient: Jon Mayberry MR#: [id number] : 1975 Acct:[id number] Age/Sex: 48 / M Date of Service: 02/29/24 Loc: ED Accession Number: [id number] Procedure: US periph venous low extrem bi Ordering Provider: Phan Bennett MD PROCEDURE: US PERIPH VENOUS LOW EXTREM BI INDICATIONS: Leg swelling TECHNIQUE: Real-time imaging, as well as color and pulse Doppler interrogation, were performed of the deep veins of both legs from the inguinal ligament to the popliteal fossa, with documentation of the visualized calf veins. COMPARISON: None. FINDINGS: Right: The common femoral, femoral, popliteal, and the visualized calf veins are normally compressible, and free of intraluminal thrombus. Color and pulse Doppler demonstrate normal phasic intravascular flow. There is normal augmentation response to distal compression maneuver. Left: The common femoral, femoral, popliteal, and the visualized calf veins are normally compressible, and free of intraluminal thrombus. Color and pulse Doppler demonstrate normal phasic intravascular flow. There is normal augmentation response to distal compression maneuver. IMPRESSION: No findings of deep venous thrombosis in either lower extremity. Dictated by: Thea Patrick M.D. on 02/29/2024 at 17:04 Approved by: Thea Patrick M.D. on 02/29/2024 at 17:04 CT scan - abdomen/pelvis: Radiologist's Impression: [place] [address] CT Scan Report Signed Patient: Jon Mayberry MR#: [id number] : 1975 Acct:[id number] Age/Sex: 48 / M Date of Service: 02/29/24 Loc: ED Accession Number: [id number] Procedure: CT chest abd pel wo con Ordering Provider: Phan Bennett MD PROCEDURE: CT CHEST ABD PEL WO CON INDICATIONS: Chest pain abdominal pain TECHNIQUE: After the administration of oral contrast, 5 mm thick sections acquired from the lung apices to the symphysis pubis. 5 mm thick coronal and sagittal reformats acquired, with additional 7 mm coronal MIP reformats through the lungs. For radiation dose reduction, the following was used: automated exposure control, adjustment of mA and/or kV according to patient size. COMPARISON: , CT, CT LUMBAR SPINE WO CON, 12/28/2023, 8:32. [facility], CT, CT CHEST ABDOMEN PELVIS WITH CONTRAST, 01/27/2024, 9:20. FINDINGS: Image quality: Diagnostic. CHEST: Lower Neck: No enlarged lymph nodes. Thyroid: No thyroid nodules which require sonographic follow up, per consensus guidelines. Axillae: No enlarged lymph nodes. Chest Wall: Unremarkable. Bones: Again noted is percutaneous cement fixation of L5 which has a possible vague sclerotic lesion. Interval development of a acute Schmorl's node/superior endplate compression of L3.. Lungs and Pleura: No pneumothorax or pleural effusions. Multiple pulmonary nodules are consistent with known pulmonary metastatic disease. Minimal short interval growth of pulmonary nodules. For instance, a right upper lobe pulmonary nodule on previous image 116/6 and current image 52/3 has increased from 1.4 cm to 1.7 cm. A left lower lobe pulmonary nodule on previous image 137/6 and current image 77/3 has increased from 1.3 cm to 1.5 cm. Heart: Heart size is normal. No pericardial effusion. Thoracic Vessels: The aorta and pulmonary arteries demonstrate normal size. Mediastinum and Shannon: No enlarged lymph nodes. Esophagus: No wall thickening. No hiatal hernia. ABDOMEN: Liver: Diffuse hepatomegaly. Extensive infiltrative malignancy is much less well seen in the absence of intravenous contrast. Gallbladder: No radiopaque gallstones or wall thickening. Biliary ducts: No biliary dilation. Pancreas: No ductal dilation. Spleen: Mild splenomegaly. Adrenal Glands: No adrenal nodules. Kidneys and Ureters: No hydronephrosis. No solid mass. No complex renal cystic lesion which requires follow up. Stomach and Bowel: Remote partial colectomy. No abnormally dilated bowel loops. Mild diffuse fecal load. Peritoneum: No abnormal intraperitoneal fluid. No free air. Ventral Wall: No hernia. Abdominal Nodes: No retroperitoneal or mesenteric adenopathy by size criteria. Vessels: Aorta and inferior vena cava are normal in size. PELVIS: Pelvic Organs: Unremarkable. Bladder: Unremarkable. Pelvic Nodes: No enlarged lymph nodes. Miscellaneous: No inguinal hernias are seen. Bones: Again noted is percutaneous cement fixation of L5 which has a possible vague sclerotic lesion. Interval development of a acute Schmorl's node/superior endplate compression of L3 to the right of midline. IMPRESSION: 1. Slight interval increase in the size of pulmonary metastatic lesions in the short interval. 2. No acute pulmonary process. 3. Hepatomegaly with extensive infiltrative metastatic disease is not as well seen without contrast. 4. Mild splenomegaly, as before. 5. Treated L5 compression. 6. Interval development of a superior endplate Schmorl's node/acute compression of L3 superior endplate to the right of midline. Recommend correlation for presence or absence of point tenderness related to this process. Dictated by: Ministerio Russo M.D. on 02/29/2024 at 16:31 Approved by: Ministerio Russo M.D. on 02/29/2024 at 16:45 [facility] Narrative Medical decision making narrative: Patient here with . Has had increase lower back pain, decreased appetite. Has had nausea and vomiting with the attempts to eat. Patient has history of metastatic colon cancer, seen by Dr. Freeman. Is currently deciding whether to go with palliative care or hospice care. Patient had surgery for his lower back due to metastatic process in December. Patient seen by Dr. Rich, [facility] ortho spine. Patient in the past week states has had bilateral leg swelling. He did recently travel to [place] a couple of weeks ago. After history and exam CBC CMP urinalysis magnesium normal saline Zofran CT chest abdomen pelvis ultrasound bilateral leg [facility] Medical records reviewed: CT lumbar spine December 2023 Differential considered: Includes but not limited to dehydration acute renal injury metastatic colon cancer rhabdomyolysis DVT Lab Test results independently reviewed as above. Pertinent findings: WBC 9.8 hemoglobin 13 hematocrit 38 platelets 192 sodium 123 potassium 5.2 BUN 22 creatinine 1.43 AST 430 ALT 63 alkaline phosphatase 987 total bilirubin 1.7 Imaging studies independently reviewed: Ultrasound bilateral legs no DVT, CT abdomen pelvis no acute finding Consultations: 6:[address] Caal, hospitalist, his team will see patient for admission. Likely night hospitalist will see patient for admission Treatments: Zofran normal saline Dilaudid Re-evaluations: 6:45 p.m.. Reviewed with patient and he does agree for admission. at bedside. Will need hydration for acute renal injury and hyponatremia Discussion: Appropriate for admission, will need IV hydration for acute renal injury and hyponatremia. Patient is full code at this time. He has not under hospice care. These are significant changes in electrolytes appeared to 2 months ago. Diagnosis: Acute renal injury hyponatremia Discharge Plan Departure Patient Disposition: Admitted As Inpatient Clinical Impression: Acute kidney injury, Acute hyponatremia, Malignant neoplasm of colon metastatic to liver Admit Date/Time: 02/29/24 18:47 Admit Provider: Thomas Caal
[2024-02-29] MEDS: SODIUM CHLORIDE 0.9% 1,000 ML 1000 ML IV (16:16)
[2024-02-29 16:23] LABS: Add Manual Diff / Slide Review NO; Basophils Absolute Auto 100 /uL (0-100); Basophils Percent Auto 0.8 % (0-2); Eosinophils Absolute Auto 100 /uL (0-450); Eosinophils Percent Auto 0.8 % (2-4); Hematocrit 38.3 % (41-53); Lymphocytes Absolute Auto 800 /uL (1100-4500); Monocytes Absolute Auto 700 /uL (0-900); Monocytes Percent Auto 7.3 % (3-14); Neutrophils Absolute Auto 8100 /uL (1500-7000); Neutrophils Percent Auto 83.1 % (50-75); Platelet Count 192 X10^3/uL (150-400); Red Blood Cell Count 4.21 X10^6/uL (4.5-5.9); Red Cell Distribution Width 13.9 % (11.6-14.8); White Blood Cell Count 9.8 X10^3/uL (4.5-11.0)
[2024-02-29 16:31] LABS: Alanine Aminotransferase 63 IU/L (<50); Albumin Globulin Ratio 1.1 (1.0-2.8); Alkaline Phosphatase 987 U/L (38-126); Aspartate Aminotransferase 430 IU/L (17-59); BUN Creatinine Ratio 15.4 (6-22); Bilirubin Total 1.7 mg/dL (0.2-1.3); Blood Urea Nitrogen 22 mg/dL (9-20); Calcium 9.3 mg/dL (8.4-10.2); Carbon Dioxide 31 mmol/L (22-32); Chloride 85 mmol/L (98-107); Estimated Glomerular Filt Rate 60 mL/min (>60); Globulin 3.5 g/dL (1.7-4.1); Glucose 81 mg/dL (70-100); HEMOLYSIS < 15 (0-50); Potassium 5.2 mmol/L (3.4-5.1); Sodium 123 mmol/L (137-145); Total Protein 7.5 g/dL (6.3-8.2)
[2024-02-29 16:39] LABS: Creatine Kinase 90 U/L (55-170)
[2024-02-29] MEDS: HYDROMORPHONE 1 MG INJ IM (18:25)
[2024-02-29 19:27] VITALS: BMI 18.8
[2024-02-29] MEDS: OXYCODONE IR 5 MG TABLET 20 MG PO (20:12)
--- NOTE | 2024-02-29 20:46 | P.HP_ITS ---
History of Present Illness History of Present Illness Date Patient Seen: 02/29/24 Chief complaint: edema bilateral legs and sciatica pain Narrative: 48 y/o with PMH of metastatic colon carcinoma, presented to ED with generalized weakness, swollen legs and hyponatremia. He is s/p partial proximal colectomy and distal ileectomy in June 2020. Surgery was followed by chemotherapy, 45 courses and in December this year had spinal surgery for excision of metastases apparently. Since that surgery he has severe back pain, currently managed by ER morphine and IR Oxycodone. He is thinking about palliative care vs hospice while maintaining full code status. [facility] Medical History Colon cancer Surgical History S/P colon resection Social History household members: significant other Smoking Status: Current every day smoker alcohol intake: current Meds Home Medications and Allergies Home Medications Medication Instructions Recorded Confirmed Type calcium carbonate (Tums) 500 mg PO TID PRN reflux 02/29/24 02/29/24 History docusate sodium 100 mg capsule 100 mg PO BID PRN Constipation 02/29/24 02/29/24 History ipratropium bromide 21 mcg (0.03 2 spray intranasal BID-TID PRN 02/29/24 02/29/24 History %) nasal spray Congestion lorazepam 0.5 mg tablet 0.5 mg PO BID 02/29/24 02/29/24 History losartan 50 mg tablet 50 mg PO DAILY PRN Hypertension 02/29/24 02/29/24 History morphine 30 mg tablet,extended 30 mg PO BID 02/29/24 02/29/24 History release oxycodone 10 mg tablet 10 mg PO Q4H PRN pain 02/29/24 02/29/24 History pantoprazole 40 mg tablet,delayed 40 mg PO DAILY 02/29/24 02/29/24 History release Allergies Allergy/AdvReac Type Severity Reaction Status Date / Time celecoxib [From Celebrex] Allergy Verified 07/25/20 09:37 Sulfa (Sulfonamide Allergy Verified 07/25/20 09:37 Antibiotics) Review of Systems Constitutional Comments: generalized weakness Cardiovascular Comments: w/o chest pain Respiratory Comments: w/o shortness of breath Gastrointestinal Comments: upper abdominal fullness and tenderness Musculoskeletal Comments: back pain Neurologic Comments: right sciatica Exam Vital Signs (past 8 hours): - 02/29/24 13:07 Temperature 98 F Pulse Rate 101 H Respiratory Rate 17 Blood Pressure 135/81 Pulse Oximetry 99 Oxygen Delivery Method Room Air Oxygen Delivery Method Room Air Const Other: laying in bed in no distress HENMT Other: normocephalic Neck Other: supple Resp Other: normal respiratory effort Cardio Other: RRR GI Other: w/o distension Skin Other: w/o rashes or jaundice Neuro Other: w/o obvious deficits Extrem Other: b/l leg swelling 2 + Psych Other: appropriate mood Objective Labs 03/01/24 05:08 03/01/24 05:08 Labs: Laboratory Results - last 24 hr 02/29/24 16:10 WBC 9.8 RBC 4.21 L Hgb 13.0 L Hct 38.3 L MCV 91.0 MCH 31.0 MCHC 34.0 RDW 13.9 Plt Count 192 Neut % (Auto) 83.1 H Lymph % (Auto) 8.0 L [place] % (Auto) 7.3 Eos % (Auto) 0.8 L Baso % (Auto) 0.8 Neut # (Auto) 8100 H Lymph # (Auto) 800 L [place] # (Auto) 700 Eos # (Auto) 100 Baso # (Auto) 100 Sodium 123 L Potassium 5.2 H Chloride 85 L Carbon Dioxide 31 BUN 22 H Creatinine 1.43 H Estimated GFR 60 BUN/Creatinine Ratio 15.4 Glucose 81 Calcium 9.3 Magnesium 2.0 Total Bilirubin 1.7 H AST 430 H ALT 63 H Alkaline Phosphatase 987 H Total Creatine Kinase 90 Total Protein 7.5 Albumin 4.0 Globulin 3.5 Albumin/Globulin Ratio 1.1 Assessment & Plan Assessment and plan (1) Acute hyponatremia: Status: Acute (2) Acute kidney injury: Status: Acute (3) Malignant neoplasm of colon metastatic to liver: Status: Acute (4) S/P colon resection: Problem details: 07/03 Status: Acute Assessment & Plan narrative: Hyponatremia - serial BMPs, next at 10 AM - Na up to 126, from 123 on NS - NS at 100 cc / h for now ANTHONY - NS Metastatic Colon Cancer - likely causing b/l leg swelling, doppler negative - numerous liver metastases - pain management with Morphine and Oxycodone Smoker - nicotine patch Patient seen at [place], [place] with provider in OR, via real-time, audiovisual platform with electronic stethoscope capabilities and nurse at bedside. DVT prophylaxis - Lovenox
[2024-02-29 20:49] VITALS: BP 120/73; PULSE 92; RESP 16; O2SAT 97
[2024-02-29] MEDS: MORPHINE ER 15 MG TABLET 30 MG PO (21:07)
[2024-02-29] MEDS: SODIUM CHLORIDE 0.9% 1,000 ML 100 ML IV (21:08)
[2024-02-29 21:38] VITALS: BP 130/93; PULSE 86; RESP 18; TEMP 36.3; O2SAT 99
[2024-03-01] MEDS: OXYCODONE IR 5 MG TABLET 10 MG PO ×2 (02:05→05:07)
[2024-03-01 02:21] LABS: Appearance Urine UA CLEAR; Bilirubin Urine UA 1+ (NEGATIVE); Color Urine UA YELLOW; Glucose Urine UA NEGATIVE (Negative); Ketones Urine UA TRACE (NEGATIVE); Leukocyte Esterase Urine UA NEGATIVE (NEGATIVE); Nitrite Urine UA NEGATIVE (Negative); Occult Blood Urine UA NEGATIVE (Negative); Protein Urine UA 1+ (Negative); Urobilinogen Urine UA 0.2 E.U./dL (0.2); pH Urine UA 5.5 (4.5-8.0)
[2024-03-01] MEDS: NICOTINE 21 MG PATCH TOP ×2 (02:25→08:25)
[2024-03-01 02:32] LABS: Amorphous Sediment Urine 1+; Bacteria Urine None Seen; Culture Indicated Urine Cult Not Indicated; Ictotest Urine Negative (Negative); RBC Urine None Seen (0-5/HPF); Squamous Epithelial Cell Urine None Seen (0-5/HPF); Urine Volume 10mL (spun); WBC Urine None Seen (0-5/HPF)
[2024-03-01] MEDS: SODIUM CHLORIDE 0.9% 1,000 ML 100 ML IV (05:17)
[2024-03-01 05:33] LABS: Add Manual Diff / Slide Review NO; Basophils Absolute Auto 200 /uL (0-100); Eosinophils Absolute Auto 100 /uL (0-450); Eosinophils Percent Auto 1.5 % (2-4); Hematocrit 35.5 % (41-53); Lymphocytes Absolute Auto 700 /uL (1100-4500); Lymphocytes Percent Auto 8.3 % (25-40); Mean Corpuscular HGB Conc 33.7 % (30-36); Monocytes Absolute Auto 700 /uL (0-900); Monocytes Percent Auto 8.3 % (3-14); Neutrophils Absolute Auto 6800 /uL (1500-7000); Neutrophils Percent Auto 79.9 % (50-75); Platelet Count 168 X10^3/uL (150-400); Red Blood Cell Count 3.86 X10^6/uL (4.5-5.9); Red Cell Distribution Width 14.3 % (11.6-14.8); White Blood Cell Count 8.5 X10^3/uL (4.5-11.0)
[2024-03-01 05:50] LABS: Alanine Aminotransferase 55 IU/L (<50); Albumin 3.5 g/dL (3.5-5.0); Albumin Globulin Ratio 1.1 (1.0-2.8); Alkaline Phosphatase 871 U/L (38-126); Aspartate Aminotransferase 455 IU/L (17-59); BUN Creatinine Ratio 16.7 (6-22); Bilirubin Total 1.7 mg/dL (0.2-1.3); Blood Urea Nitrogen 19 mg/dL (9-20); Calcium 8.6 mg/dL (8.4-10.2); Carbon Dioxide 28 mmol/L (22-32); Chloride 91 mmol/L (98-107); Estimated Glomerular Filt Rate > 60 mL/min (>60); Globulin 3.3 g/dL (1.7-4.1); Glucose 74 mg/dL (70-100); HEMOLYSIS < 15 (0-50); Potassium 4.6 mmol/L (3.4-5.1); Sodium 126 mmol/L (137-145); Total Protein 6.8 g/dL (6.3-8.2)
[2024-03-01] MEDS: MORPHINE ER 15 MG TABLET 30 MG PO (08:25)
[2024-03-01] MEDS: OXYCODONE IR 5 MG TABLET 20 MG PO (08:25)
[2024-03-01] MEDS: ENOXAPARIN 30 MG/0.3 ML SYRINGE SUBCUT (08:30)
[2024-03-01] MEDS: PANTOPRAZOLE DR 40 MG TABLET PO (09:29)
[2024-03-01] MEDS: CALCIUM CARBONATE 500 MG TAB PO (09:29)
[2024-03-01] MEDS: LORazepam 0.5 MG TABLET PO (09:29)
[2024-03-01] MEDS: HYDROMORPHONE 0.5 MG INJ IV ×2 (10:17→12:52)
--- NOTE | 2024-03-01 11:54 | DIET.CONS ---
Dietary Consultation Note Admission Date: 02/29/2024 18:47 Assessment: 48 y M presented with generalized weakness, swollen legs, hyponatremia. PMH of metastatic colon carcinoma and spinal surgery for excision of metastases. Determining GOC per hospitalist in rounds. Nutrition screened for low MNA. Met with pt at bedside, reports symptoms of acid reflux, nausea, and incidents of emesis for last 3 months, with emesis happening 1x/day for last week. Reports intake of tomato based foods (pizza, ketchup on hot dog) leading to emesis. Does strawberry ONS (plus/enlive option) or ONS based smoothies to help with intakes at home. Tolerates lean meats and fish well. Pt open to NFPE. Limited exam. -Mild temporalis loss, moderate loss clavicle region -Mild-moderate loss buccal, orbital, and triceps Ht: 187.96 cm Wt: 66.5 kg *Noted edema BMI: 18.8 UBW: 68.18 kg around 3 months ago (2.5% loss in 3 months, non-severe) Last BM: 02/28/24 (02/29/24 19:27) MNA: 4 Don Score: 19 Diet: 03/01/24 Breakfast General (Regular) Diet Diet Modifications: Nutrition Percent Meal Consumed 50% 03/01/24 09:39 Labs: RBC 3.86 X10^6/uL (4.5-5.9) L 03/01/24 05:08 Hgb 12.0 g/dL (13.5-17.5) L 03/01/24 05:08 Hct 35.5 % (41-53) L 03/01/24 05:08 Creatinine 1.14 mg/dL (0.66-1.25) 03/01/24 05:08 Nutrition Diagnosis: Moderate acute on chronic protein calorie malnutrition r/t decreased ability to consume adequate intake in setting of GI symptoms aeb <75% of estimated energy needs for 7 days, mild to moderate muscle wasting (temporalis, deltoid), mild to moderate subcutaneous fat loss (orbital, buccal, triceps), metastatic colon cancer Interventions: 1. Nutrition therapy for symptoms of acid reflux provided Monitoring/Evaluations: pt d/c Electronically Signed by: Shereen Ruby 03/01/24 11:54 Clinical Dietitian [address] [address]
--- NOTE | 2024-03-01 12:27 | OT.IPNOTE ---
Per hospitalist, pt looking to pursue hospice and therefore okay to discharge OT eval orders.
[2024-03-01 12:31] LABS: BUN Creatinine Ratio 16.2 (6-22); Blood Urea Nitrogen 17 mg/dL (9-20); Calcium 8.7 mg/dL (8.4-10.2); Carbon Dioxide 29 mmol/L (22-32); Chloride 93 mmol/L (98-107); Estimated Glomerular Filt Rate > 60 mL/min (>60); Glucose 95 mg/dL (70-100); HEMOLYSIS < 15 (0-50); Potassium 4.8 mmol/L (3.4-5.1); Sodium 126 mmol/L (137-145)
--- NOTE | 2024-03-01 12:41 | PT-IP ANOTE ---
PT wilfredo received and EMR reviewed. Dr. Caal informed PT that pt will d/c home with hospice care and he will d/c PT eval order.
--- NOTE | 2024-03-01 12:42 | PM.DS.1 ---
History of Present Illness History of Present Illness Chief complaint: edema bilateral legs and sciatica pain Narrative: 48 y/o with PMH of metastatic colon carcinoma, presented to ED with generalized weakness, swollen legs and hyponatremia. He is s/p partial proximal colectomy and distal ileectomy in June 2020. Surgery was followed by chemotherapy, 45 courses and in December this year had spinal surgery for excision of metastases apparently. Since that surgery he has severe back pain, currently managed by ER morphine and IR Oxycodone. He is thinking about palliative care vs hospice while maintaining full code status. Discharge Providers Provider Date of admission: 02/29/24 18:47 Discharge Date: 03/01/24 Consults: 03/01/24 08:20 Consult to Occupational Therapy Evaluate & Treat Comment: Physician Instructions: Evaluate and treat Discharge provider: Thomas Caal DO Summary Hospital Course Discharge Diagnosis: Hyponatremia - came in at 123 - improved to 126 with IVF - likely cancer related vs hypolemia ANTHONY, resolved - given NS Metastatic Colon Cancer to spine causing right-sided sciatica - likely causing b/l leg swelling, doppler negative - numerous liver metastases, received 45 rounds of chemo and has no further treatment options - pain management with Morphine and Oxycodone - patient willing to try lyrica for neuropathic pain, has f/up with Dr. Irizarry pain specialist and Dr. Brand spine at [facility] coming up - hospice discussed, he plans to enroll in about a month once he has interventions for his back. Has already had hospice info visit. Smoker - nicotine patch GERD -patient notes severe reflux not improved with protonix or TUMS -sent nexium for him to try to his pharmacy Hospital Course: Patient came to the ED for increased LE swelling. He notes he just got back from [place] on a trip with family so was on his feet alot. In the ED found to have Na 123 and ANTHONY. Was given IVF and these improved. He elevated his LE's and his swelling improved. He noted right-sided sciatica from nerve impingement in his L5 due to a collapsed vertebra from lytic cancer lesions. Has follow-up with pain and spine specialists at [facility] on 03/02. He would like to try lyrica for cancer-related neuropathic pain so a prescription was sent to his pharmacy for this. He also noted worsening GERD symptoms not improved with protonix or TUMS so a script for nexium was also sent. His Na improved to 126 and he was sent home. He says he plans to enroll in hospice in about a month and has already had the info visit. Exam Vital Signs (past 8 hours): Oxygen Delivery Method Room Air Const Other: laying in bed in no distress, thin HENMT Other: normocephalic Neck Other: supple Resp Other: normal respiratory effort Cardio Other: RRR GI Other: w/o distension Skin Other: w/o rashes or jaundice Neuro Other: w/o obvious deficits Extrem Other: b/l leg swelling 2 + Psych Other: appropriate mood Objective Labs 03/01/24 05:08 03/01/24 12:10 Labs: Laboratory Results - last 24 hr 02/29/24 03/01/24 03/01/24 16:10 02:08 05:08 WBC 9.8 8.5 RBC 4.21 L 3.86 L Hgb 13.0 L 12.0 L Hct 38.3 L 35.5 L MCV 91.0 92.0 MCH 31.0 31.0 MCHC 34.0 33.7 RDW 13.9 14.3 Plt Count 192 168 Neut % (Auto) 83.1 H 79.9 H Lymph % (Auto) 8.0 L 8.3 L [place] % (Auto) 7.3 8.3 Eos % (Auto) 0.8 L 1.5 L Baso % (Auto) 0.8 2.0 Neut # (Auto) 8100 H 6800 Lymph # (Auto) 800 L 700 L [place] # (Auto) 700 700 Eos # (Auto) 100 100 Baso # (Auto) 100 200 H Sodium 123 L 126 L Potassium 5.2 H 4.6 Chloride 85 L 91 L Carbon Dioxide 31 28 BUN 22 H 19 Creatinine 1.43 H 1.14 Estimated GFR 60 > 60 BUN/Creatinine Ratio 15.4 16.7 Glucose 81 74 Calcium 9.3 8.6 Magnesium 2.0 Total Bilirubin 1.7 H 1.7 H AST 430 H 455 H ALT 63 H 55 H Alkaline Phosphatase 987 H 871 H Total Creatine Kinase 90 Total Protein 7.5 6.8 Albumin 4.0 3.5 Globulin 3.5 3.3 Albumin/Globulin Ratio 1.1 1.1 Urine Color Yellow Urine Appearance Clear Urine pH 5.5 Ur Specific [place] 1.010 Urine Protein 1+ H Urine Glucose (UA) Negative Urine Ketones Trace H Urine Occult Blood Negative Urine Nitrate Negative Urine Bilirubin 1+ H Ur Bilirubin Confirm Negative Urine Urobilinogen 0.2 Ur Leukocyte Esterase Negative Urine RBC None seen Urine WBC None seen Ur Squamous Epith Cells None seen Amorphous Sediment 1+ Urine Bacteria None seen Ur Culture Indicated? Cult not indicated Vol Urine Centrifuged 10ml (spun) 03/01/24 12:10 WBC RBC Hgb Hct MCV MCH MCHC RDW Plt Count Neut % (Auto) Lymph % (Auto) [place] % (Auto) Eos % (Auto) Baso % (Auto) Neut # (Auto) Lymph # (Auto) [place] # (Auto) Eos # (Auto) Baso # (Auto) Sodium 126 L Potassium 4.8 Chloride 93 L Carbon Dioxide 29 BUN 17 Creatinine 1.05 Estimated GFR > 60 BUN/Creatinine Ratio 16.2 Glucose 95 Calcium 8.7 Magnesium Total Bilirubin AST ALT Alkaline Phosphatase Total Creatine Kinase Total Protein Albumin Globulin Albumin/Globulin Ratio Urine Color Urine Appearance Urine pH Ur Specific [place] Urine Protein Urine Glucose (UA) Urine Ketones Urine Occult Blood Urine Nitrate Urine Bilirubin Ur Bilirubin Confirm Urine Urobilinogen Ur Leukocyte Esterase Urine RBC Urine WBC Ur Squamous Epith Cells Amorphous Sediment Urine Bacteria Ur Culture Indicated? Vol Urine Centrifuged [facility] Medical History Colon cancer Surgical History S/P colon resection Social History household members: significant other Smoking Status: Current every day smoker alcohol intake: current Discharge Plan Discharge Plan Patient Disposition: Home Discharge orders & Medications Prescriptions: New pregabalin [Lyrica] 50 mg Capsule 50 mg PO BID Qty: 60 0RF esomeprazole magnesium [Nexium] 40 mg capsule,delayed release(DR/EC) 40 mg PO DAILY Qty: 30 0RF Continued losartan 50 mg tablet 50 mg PO DAILY PRN (Reason: Hypertension) morphine 30 mg tablet extended release 30 mg PO BID lorazepam 0.5 mg tablet 0.5 mg PO BID Rx Instructions: takes 1mg qam and 0.5mg at HS calcium carbonate [Tums] 200 mg calcium (500 mg) Tablet,Chewable 500 mg PO TID PRN (Reason: reflux) docusate sodium 100 mg capsule 100 mg PO BID PRN (Reason: Constipation) ipratropium bromide 21 mcg (0.03 %) [place],Non-Aerosol 2 spray INTRANASAL BID-TID PRN (Reason: Congestion) Rx Instructions: administer into each nostril oxycodone 10 mg tablet 10 mg PO Q4H PRN (Reason: pain) Discontinued pantoprazole 40 mg tablet,delayed release (DR/EC) 40 mg PO DAILY Visit Report/Discharge Packet Stand Alone Forms: Patient Portal/API, Stroke Signs & Symptoms Discharge Data Attending Provider: Thomas Caal Admit Date/Time: 02/29/24 18:47 Quality VTE Deep Vein Thrombosis/Pulmonary Embolism Present on Admission: No
--- NOTE | 2024-03-01 12:55 | CM.DANOTE ---
DCP Assessmetn note Pt is a 48yo M with a long history of colon/liver cancer here following generalized weakness/hyponatremia. PCP none listed. pt sees Dr. Freeman for oncology and Dr. Rich at [facility] for spine/back pain. Payer out of state [employer] and Medicare NETWORKING ENGINEER reviewed EMR. Per chart review, pt had spinal surgery in December 2023 to attempt to relieve some of his back pain in an attempt to make him more comfortable. Surg was followed by 45 rounds of chemo. Per hospitalist after a lengthy goals of care conversation, pt preference is to dc home, f/u with spinal doctor tomorrow 03/02 as planned, anticipate doing another spinal surgery, and then starting services with hospice. NETWORKING ENGINEER met with pt in room. Pt confirms plan outlined by provider, reports they had a phone call with [facility] informational last week and their plan to start services after next spinal surgery. Pt reports spouse on way to transport home. Deny CM/DCP needs. P: home with spouse today, f/u with spinal doctor tomorrow. [facility] to open after. CM team will continue to follow as needed. JOHNATHON Lobo Discharge Planning/Care Management CM Discharge Assessment Start: 03/01/24 12:53 Freq: Status: Active Protocol: Document 03/01/24 12:53 (Rec: 03/01/24 12:55 [id number]) Discharge Planning Assessment Assigned Precise Winder JOHNATHON Diaz DPOA/Assigned Designee Name Lilia spouse Contact Information [phone] Advance Directives? No History Provided By Patient Prior Living Arrangements House Household Members significant other Independent with ADL's Yes Is patient alert and oriented? Yes DME Already Rented / Owned FWW / Walker,Cane Barriers to Discharge No Discharge Plan Home Transportation Arrangement spouse Referrals Initiated None needed Whiteboard Updated in Patient Room with No name and ext. # of Precise Winder Review Status In Process Please Provide Date Initial DC 03/01/24 Assessment Was Performed Next Review Type Continued Stay Review
--- NOTE | 2024-03-01 15:13 | PC.NURSE ---
Discharge Note Patient A&O, VSS, RA, no complaints of pain/discomfort. Discharge packet reviewed with patient, all questions/concerns addressed. PIV discontinued. Patient able to dress self and pack all belongings. Patient reminded to machine operator hop picker prescription at preferred pharmacy. Patient taken down via wheelchair to POV.
== END 2024-03-01 14:15 | disposition home or self-care (01) ==
LOC: ED 15:26 → AC 18:57
PROVIDERS: Internal Medicine; Admitting Provider Student in an Organized Health Care Education/Training Program; Emergency Provider Emergency Medicine; Referring Provider Emergency Medicine; Visit Provider Student in an Organized Health Care Education/Training Program
DX: C18.9 Malignant neoplasm of colon, unspecified (principal); C78.7 Secondary malignant neoplasm of liver and intrahepatic bile duct; N17.9 Acute kidney failure, unspecified; E87.1 Hypo-osmolality and hyponatremia; E86.0 Dehydration; Z90.49 Acquired absence of other specified parts of digestive tract; F17.210 Nicotine dependence, cigarettes, uncomplicated; K21.9 Gastro-esophageal reflux disease without esophagitis
CPT/HCPCS: 36415; 71250; 74176; 80048; 80053; 81001; 82550; 83735; 85025; 93970; 96361; 96372; 96374; 96376; 99284; G0378; J1170; J1650